=== PATIENT | female | born 1995 | race Caucasian/White ===

== ENCOUNTER → 2023-10-19 13:18 | Outpatient (REF) | payer BC, OTHER, SELFPAY | LOC: PNTC 13:18 | PROVIDERS: ATTENDING PHYSICIAN Obstetrics & Gynecology | DX: O99.210 Obesity complicating pregnancy, unspecified trimester (principal); O09.819 Supervision of pregnancy resulting from assisted reproductive technology, unspecified trimester | CPT/HCPCS: 76805 ==

== ENCOUNTER → 2023-11-16 06:54 | Outpatient (REF) | payer OTHER, BC, SELFPAY | LOC: PNTC 06:54 | PROVIDERS: ATTENDING PHYSICIAN Obstetrics & Gynecology | DX: O09.819 Supervision of pregnancy resulting from assisted reproductive technology, unspecified trimester (principal); O99.210 Obesity complicating pregnancy, unspecified trimester | CPT/HCPCS: 76811; J2997 ==

== ENCOUNTER 2023-12-16 09:24 | Emergency (ER) | payer OTHER, BC, SELFPAY ==
[2023-12-16 09:25] VITALS: BP 124/65
--- NOTE | 2023-12-16 09:39 | ED.GENMED ---
History of Present Illness
General
Chief Complaint: Abdominal Pain
Source: patient
Exam Limitations: none
Time Seen by Provider: 12/16/23 09:29
Nursing documentation reviewed up to this point in time: agreed with
Travel History
Have you had any contact with someone who has COVID-19?: No
Do you have any symptoms of coronavirus? Fever > 100 degrees, chills, cough, shortness of breath, sore throat, loss of taste or smell, muscle aches, or headache?: No
History of Present Illness
History of Present Illness:
28 yo h/o hypothyroid, PCOS, egg retrieval, , 24.5 weeks via in vitro fertilization, presents with RUQ abdominal sharp pains since 3 a.m. Feels nauseous, has not vomited, feels chills, no fever. Denies SOB, CP.
Past History
Past History
ED Past Medical History: Hypothyroidism
ED Past Surgical History: Other (egg retrieval, wisdom teeth)
Social History
Tobacco: Non-smoker
Alcohol: None
Personal:
Living: with family
Employment: Employed
Review of Systems
Review of Systems
Allergies reviewed?: Yes
All Other Systems: ROS reviewed and negative except as documented in HPI and ROS
Constitutional: Denies fever
Respiratory: Denies trouble breathing
Cardiac: Denies chest pain
ABD/GI: Reports abdominal pain and nausea; Denies vomiting or diarrhea
: Denies dysuria, frequency, flank pain, difficulty voiding or urgency
Musculoskeletal: Reports no symptoms
Skin: Reports no symptoms
Neurological: Reports no symptoms
Phy Exam
Physical Exam
Physical Exam:
GENERAL: No acute distress. A&Ox3.
CONSTITUTIONAL: Afebrile.
EYES: clear, conjunctivae normal
ENMT: moist mucus membranes, Pharynx nl
RESPIRATORY: Regular respirations, nonlabored, lungs clear.
CARDIOVASCULAR: Regular rate and rhythm, no murmurs, no rubs.
GI: Soft, tender RUQ, no guarding, normal BS
MUSCULOSKELETAL: Moves with ease. Well perfused.
SKIN: Warm, dry, pink
PSYCH: Normal mood and affect. Well kept, interactive and appropriate
NEUROLOGIC: Awake, alert and oriented. No focal neurological deficits
Course
Orders/Labs/Results
Orders:
Orders
12/16/23 09:38
US Abdomen Complete/Upper Urgent
Comment:
Reason For Exam: RUQ pain, 24.5 weeks
12/16/23 09:39
0.9% Sodium Chloride 1000 ml [Nss] 1,000 ml IV BOLUS
12/16/23 09:45
Heart Tones ONCE
12/16/23 10:42
Complete Blood Count/With Diff Urgent
Comprehensive Metabolic Panel Urgent
Lipase Urgent
Urinalysis Reflex To Culture Urgent
Date Specimen was Collected: 12/16/23
Time Specimen was Collected: 10:38
Urine Microscopic Reflex Cult Urgent
Urine Culture Urgent
BEVERLY Source: U
Specimen Description:
Date Specimen was Collected: 12/16/23
Time Specimen was Collected: 10:38
12/16/23 11:04
Ondansetron Injectable [Zofran] 4 mg .ROUTE .STK-MED ONE
12/16/23 11:06
Ondansetron Injectable [Zofran] 4 mg IV NOW STA
Abnormal Lab Results
12/16/23
10:42
WBC 11.8 H 10^3/uL
(4.8-10.8)
Hgb 11.3 L g/dL
(12.0-16.0)
Hct 34.5 L %
(37.0-47.0)
MCV 80.0 L fL
(81.0-99.0)
MCH 26.2 L pg
(27.0-31.0)
MCHC 32.8 L g/dL
(33.0-37.0)
MPV 10.8 H fL
(7.4-10.4)
Abs Immat Gran (auto) 0.1 H 10^3/uL
(0-0.05)
Absolute Neuts (auto) 9.3 H 10^3/uL
(1.4-6.5)
Immature Gran % 0.7 H %
(0-0.5)
Neutrophils % 78.9 H %
(42.2-75.2)
Lymphocytes % 14.8 L %
(20.5-51.1)
Chloride 108 H mmol/L
(98-107)
Carbon Dioxide 21 L mmol/L
(22-30)
BUN 5 L mg/dl
(7-17)
Creatinine 0.5 L mg/dL
(0.6-1.0)
Leukocyte Esterase Rfl 1+ A
(Negative)
Urine Bacteria (Reflex) Moderate A
(Negative)
12/16/23 10:42
12/16/23 10:42
Vital Signs
Initial and Last Documented VS:
Initial Vital Signs
Temp Pulse Resp BP Pulse Ox
98.1 F 88 20 124/65 100
12/16/23 09:25 12/16/23 09:25 12/16/23 09:25 12/16/23 09:25 12/16/23 09:25
Last Documented Vital Signs
Temp Pulse Resp BP Pulse Ox
98.1 F 78 16 119/63 100
12/16/23 09:25 12/16/23 12:46 12/16/23 12:46 12/16/23 12:46 12/16/23 12:46
MDM/Problems Addressed
Differential Diagnosis Includes:
cholecystitis, biliary colic, kidney stone, GERD, gestational HTN, HELLP
MDM/Problems Addressed:
28 yo h/o hypothyroid, PCOS, egg retrieval, , 24.5 weeks via in vitro fertilization, presents with RUQ abdominal sharp pains since 3 a.m. Feels nauseous, has not vomited, feels chills, no fever. Denies SOB, CP.
No risk factors for Eclampsia/preeclampsia
11:14 AM
FHT 144
CBC: WBC 11.8
CMP unremarkable
Patient is nauseous, Zofran ordered
Abdominal ultrasound is normal, specifically the gallbladder is normal, kidneys are normal and no hydronephrosis.
UA negative
Pt now states she lifted a table 3 days ago and may have strained her abdominal muscles.
No longer nauseous.
Reassured no indication of pre eclampsia or any other concerning issue
She is comfortable going home.
Pain is minimal, no longer nauseous
Ambulated out with normal gait.
.�
*Critical Care Note
Total Time (30-74mins, 75-104mins- exclusive of procedures): Not Applicable
ED Attending Note
-
Portions of this chart may have been created with voice recognition software.� Occasional wrong word or��sound alike� substitutions may have occurred due to the inherent limitations of voice recognition software.
Discharge Plan
Departure
Patient Disposition: Home (Routine Discharge)
Date of Disposition: 12/16/23
Time of Disposition: 12:28
Patient with high blood pressure during this ER visit?: No
Condition: Good
Discharge Problem:
Abdominal pain,
Instructions: Stomach Pain Later in , Abdominal Pain
Referrals:
Your, OB doctor [Other] - Keep scheduled appt
Pantera Velazco, DO [Family Provider] -
Activity Restrictions/Additional Instructions:
As we discussed, nothing worrisome in your evaluation here today.
Tylenol 650 mg every 6 hours as needed for painDiclegis
Avoid lifting more than 5 lbs.
Return here immediately for worsening pain, pain associated with vomiting, fever, vaginal discharge or bleeding or feeling sicker in any way.
You may take [id number] Diclegis as directed on the package as needed for nausea.
Interventions
Interventions:
*Risk Screen - Suicide Last Done: 12/16/23 12:55
*General Assessment Last Done: 12/16/23 11:00
*Neglect/Abuse Screening Last Done: 12/16/23 12:55
ED- Fall Risk Assessment Last Done: 12/16/23 12:55
*ED COVID-19 Vaccine History Last Done: 12/16/23 11:00
*Nursing Disposition Last Done: 12/16/23 12:55
RZ-Uwjdej-Fdkzvuebzb Assessment Last Done: 12/16/23 11:00
Discharge Date and Time
Discharge Date/Time: 12/16/23 12:55
Print Language: SWAZI
[2023-12-16] MEDS: NSS 1000 IV (10:50)
[2023-12-16 10:54] LABS: Urine Albumin Negative (Neg - Trace); Urine Bilirubin Negative (Negative); Urine Character Clear (Clear); Urine Color Yellow; Urine Glucose Negative (Negative); Urine Ketone Negative (Negative); Urine Leukocyte 1+ (Negative); Urine Nitrite Negative (Negative); Urine Occult Blood Negative (Negative); Urine Specific Gravity 1.015 (<1.030); Urine Urobilinogen Negative (Neg - 1+)
[2023-12-16] MEDS: ZOFRAN 4 MG IV (11:06)
[2023-12-16 11:09] LABS: % Basophils 0.4 % (0-2); % Eosinophils 0.7 % (0-6); % Immature Granulocytes 0.7 % (0-0.5); % Lymphocytes 14.8 % (20.5-51.1); % Monocytes 4.5 % (1.7-9.3); % Neutrophils 78.9 % (42.2-75.2); Absolute Basophils 0.1 10^3/uL (0-0.2); Absolute Eosinophils 0.1 10^3/uL (0-0.7); Absolute Immature Granulocytes 0.1 10^3/uL (0-0.05); Absolute Lymphocytes 1.8 10^3/uL (1.2-3.4); Absolute Monocytes 0.5 10^3/uL (0.1-0.6); Absolute Neutrophils 9.3 10^3/uL (1.4-6.5); Hematocrit 34.5 % (37.0-47.0); Hemoglobin 11.3 g/dL (12.0-16.0); Mean Corp Hgb Conc. 32.8 g/dL (33.0-37.0); Mean Corpuscular Hgb 26.2 pg (27.0-31.0); Mean Platelet Volume 10.8 fL (7.4-10.4); Nucleated Red Blood Cells % 0 %; Platelet Count 258 10^3/uL (130-400); Red Blood Cell Count 4.31 10^6/uL (4.20-5.40); Red Cell Dist. Width 14.5 % (11.5-14.5); White Blood Cell Count 11.8 10^3/uL (4.8-10.8)
[2023-12-16 11:10] LABS: Urine Bacteria Moderate (Negative); Urine Squamous Cell >30 /LPF (Few)
[2023-12-16 11:15] LABS: Urine Red Blood Cell 0-2 /HPF (0-2)
[2023-12-16 11:25] LABS: ALT (SGPT) 14 U/L (0-35); AST (SGOT) 19 U/L (14-36); Albumin 3.6 g/dl (3.5-5.0); Alkaline Phosphatase 78 U/L (38-126); Blood Urea Nitrogen 5 mg/dl (7-17); Calcium 9.5 mg/dl (8.4-10.2); Carbon Dioxide 21 mmol/L (22-30); Chloride 108 mmol/L (98-107); Glucose 96 mg/dl (70-99); Lipase 64 U/L (23-300); Sodium 135 mmol/L (135-145); Total Bilirubin 0.3 mg/dl (0.2-1.3); Total Protein 6.8 g/dl (6.3-8.2); eGFR > 60.00
[2023-12-16 11:35] VITALS: BP 125/70
[2023-12-16 12:46] VITALS: BP 119/63
== END 2023-12-16 12:55 | disposition home or self-care (01) ==
LOC: EMR 09:24
PROVIDERS: Registered Nurse; EMERGENCY PHYSICIAN Student in an Organized Health Care Education/Training Program; FAMILY PHYSICIAN Family Medicine
DX: O99.891 Other specified diseases and conditions complicating pregnancy (principal); R10.9 Unspecified abdominal pain; O99.282 Endocrine, nutritional and metabolic diseases complicating pregnancy, second trimester; E03.9 Hypothyroidism, unspecified; Z3A.24 24 weeks gestation of pregnancy
CPT/HCPCS: 99284; 96374; 96361; 76700; 80053; 81003; 81015; 83690; 85025; 87086

== ENCOUNTER → 2023-12-17 12:03 | Outpatient (REF) | payer OTHER, BC, SELFPAY | LOC: PNTC 12:03 | PROVIDERS: ATTENDING PHYSICIAN Obstetrics & Gynecology | DX: O26.899 Other specified pregnancy related conditions, unspecified trimester (principal); O09.819 Supervision of pregnancy resulting from assisted reproductive technology, unspecified trimester; O99.210 Obesity complicating pregnancy, unspecified trimester; E03.9 Hypothyroidism, unspecified | CPT/HCPCS: 76816 ==

== ENCOUNTER → 2023-12-28 06:47 | Outpatient (REF) | payer OTHER, BC, SELFPAY | LOC: PNTC 06:47 | PROVIDERS: ATTENDING PHYSICIAN Obstetrics & Gynecology | DX: O09.819 Supervision of pregnancy resulting from assisted reproductive technology, unspecified trimester (principal); O99.210 Obesity complicating pregnancy, unspecified trimester; O99.280 Endocrine, nutritional and metabolic diseases complicating pregnancy, unspecified trimester | CPT/HCPCS: 76816 ==

== ENCOUNTER → 2024-02-09 07:03 | Outpatient (REF) | payer BC, OTHER, SELFPAY | LOC: PNTC 07:03 | PROVIDERS: ATTENDING PHYSICIAN Obstetrics & Gynecology | DX: O09.819 Supervision of pregnancy resulting from assisted reproductive technology, unspecified trimester (principal); O99.210 Obesity complicating pregnancy, unspecified trimester; O99.280 Endocrine, nutritional and metabolic diseases complicating pregnancy, unspecified trimester | CPT/HCPCS: 76816 ==

== ENCOUNTER → 2024-02-23 07:10 | Outpatient (REF) | payer BC, OTHER, SELFPAY | LOC: PNTC 07:10 | PROVIDERS: ATTENDING PHYSICIAN Obstetrics & Gynecology | DX: O09.819 Supervision of pregnancy resulting from assisted reproductive technology, unspecified trimester (principal); O99.210 Obesity complicating pregnancy, unspecified trimester; O99.280 Endocrine, nutritional and metabolic diseases complicating pregnancy, unspecified trimester | CPT/HCPCS: 59025; 76815 ==

== ENCOUNTER → 2024-03-01 07:12 | Outpatient (REF) | payer BC, OTHER, SELFPAY | LOC: PNTC 07:12 | PROVIDERS: ATTENDING PHYSICIAN Obstetrics & Gynecology; REFERRING PHYSICIAN Obstetrics & Gynecology | DX: O99.210 Obesity complicating pregnancy, unspecified trimester (principal); O09.819 Supervision of pregnancy resulting from assisted reproductive technology, unspecified trimester; E03.9 Hypothyroidism, unspecified | CPT/HCPCS: 59025; 76815 ==

== ENCOUNTER → 2024-03-08 07:09 | Outpatient (REF) | payer BC, OTHER, SELFPAY | LOC: PNTC 07:09 | PROVIDERS: ATTENDING PHYSICIAN Obstetrics & Gynecology | DX: O09.819 Supervision of pregnancy resulting from assisted reproductive technology, unspecified trimester (principal); O99.210 Obesity complicating pregnancy, unspecified trimester; O99.280 Endocrine, nutritional and metabolic diseases complicating pregnancy, unspecified trimester | CPT/HCPCS: 59025; 76816 ==

== ENCOUNTER → 2024-03-15 07:03 | Outpatient (REF) | payer BC, OTHER, SELFPAY | LOC: PNTC 07:03 | PROVIDERS: ATTENDING PHYSICIAN Obstetrics & Gynecology | DX: O99.210 Obesity complicating pregnancy, unspecified trimester (principal); O09.819 Supervision of pregnancy resulting from assisted reproductive technology, unspecified trimester; O99.280 Endocrine, nutritional and metabolic diseases complicating pregnancy, unspecified trimester | CPT/HCPCS: 36415; 59025; 76805; 76818 ==

== ENCOUNTER 2024-03-20 11:31 | Inpatient (IN) | payer BC, OTHER, SELFPAY ==
[2024-03-20 11:42] VITALS: BP 146/83; BMI 38.8
[2024-03-20 12:22] LABS: Hematocrit 33.4 % (37.0-47.0); Hemoglobin 11.4 g/dL (12.0-16.0); Mean Corp Hgb Conc. 34.1 g/dL (33.0-37.0); Mean Corpuscular Hgb 27.4 pg (27.0-31.0); Mean Corpuscular Volume 80.3 fL (81.0-99.0); Mean Platelet Volume 11.3 fL (7.4-10.4); Platelet Count 196 10^3/uL (130-400); Red Blood Cell Count 4.16 10^6/uL (4.20-5.40); Red Cell Dist. Width 16.4 % (11.5-14.5); White Blood Cell Count 11.4 10^3/uL (4.8-10.8)
[2024-03-20 12:32] LABS: ALT (SGPT) 14 U/L (0-35); AST (SGOT) 21 U/L (14-36); Albumin 3.1 g/dl (3.5-5.0); Alkaline Phosphatase 117 U/L (38-126); Blood Urea Nitrogen 8 mg/dl (7-17); Calcium 9.2 mg/dl (8.4-10.2); Carbon Dioxide 23 mmol/L (22-30); Chloride 108 mmol/L (98-107); Estimated Creatinine Clearance > 125 ml/min; Glucose 98 mg/dl (70-99); Potassium 4.2 mmol/L (3.5-5.1); Sodium 135 mmol/L (135-145); Total Bilirubin 0.3 mg/dl (0.2-1.3); Total Protein 5.9 g/dl (6.3-8.2); eGFR > 60.00
[2024-03-20 12:36] LABS: Protein/creatinine Ratio 0.1; Urine Protein 10 mg/dl
[2024-03-20] MEDS: PENICILLIN 110 UNITS IV (14:37)
[2024-03-20] MEDS: LR 1000 IV (14:37)
[2024-03-20] MEDS: CYTOTEC 25 MICROGRAM VAG (14:43)
[2024-03-20] MEDS: PENICILLIN 55 UNITS IV ×2 (18:02→21:47)
[2024-03-20] MEDS: CYTOTEC 50 MICROGRAM PO ×2 (19:00→23:19)
[2024-03-21] MEDS: PENICILLIN 55 UNITS IV ×6 (02:09→21:58)
[2024-03-21] MEDS: ZOFRAN 4 MG IV (02:09)
[2024-03-21] MEDS: MORPHINE SULFATE 2 MG IV (02:25)
[2024-03-21] MEDS: PITOCIN 30 UNITS/NSS 500 ML IV (03:22)
[2024-03-21] MEDS: SYNTHROID 137 MCG PO (06:11)
[2024-03-21] MEDS: LR 1000 IV (06:19)
[2024-03-21] MEDS: PRENATAL PLUS PO (08:39)
[2024-03-21] MEDS: FEOSOL PO (08:39)
[2024-03-21] MEDS: SUBLIMAZE 100 MCG EPIDURAL (09:03)
[2024-03-21] MEDS: FENTANYL/BUPIVACAINE 100 EPIDURAL ×2 (09:04→16:38)
[2024-03-21] MEDS: METHERGINE INJECTION 0.2 MG IM (23:46)
[2024-03-22] MEDS: CYTOTEC PO (00:06)
[2024-03-22] MEDS: TYLENOL 650 MG PO ×3 (01:41→20:44)
[2024-03-22] MEDS: MOTRIN 600 MG PO ×3 (01:42→20:44)
[2024-03-22] MEDS: SYNTHROID 137 MCG PO (05:53)
[2024-03-22 08:13] LABS: Hematocrit 32.8 % (37.0-47.0)
[2024-03-22] MEDS: HYDROCORTISONE 2.5% OINTMENT 1 APPLIC TOPICAL ×2 (11:37→20:00)
[2024-03-22 12:35] LABS: Syphilis/T. pallidum Ab Reflex Negative (Negative)
[2024-03-22] MEDS: PRENATAL PLUS 1 TABLET PO (13:45)
[2024-03-22] MEDS: FEOSOL 325 MG PO (13:46)
[2024-03-23] MEDS: MOTRIN 600 MG PO (04:44)
[2024-03-23] MEDS: TYLENOL 650 MG PO (04:44)
[2024-03-23] MEDS: SYNTHROID 137 MCG PO (05:57)
[2024-03-23] MEDS: PRENATAL PLUS 1 TABLET PO (07:15)
[2024-03-23] MEDS: SENOKOT-S 1 TABLET PO (07:15)
[2024-03-23] MEDS: FEOSOL 325 MG PO (07:15)
[2024-03-23] MEDS: HYDROCORTISONE 2.5% OINTMENT 1 APPLIC TOPICAL (07:49)
== END 2024-03-23 12:00 | disposition home or self-care (01) | DRG 807 ==
LOC: LDRP 11:31
PROVIDERS: Obstetrics & Gynecology; ADMITTING PHYSICIAN Obstetrics & Gynecology; REFERRING PHYSICIAN Obstetrics & Gynecology
PROC: 3E0P7VZ Introduction of Hormone into Female Reproductive, Via Natural or Artificial Opening (ICD-10-PCS; 2024-03-20)
PROC: 3E033VJ Introduction of Other Hormone into Peripheral Vein, Percutaneous Approach (ICD-10-PCS; 2024-03-20)
PROC: 0HQ9XZZ Repair Perineum Skin, External Approach (ICD-10-PCS; 2024-03-22)
PROC: 10E0XZZ Delivery of Products of Conception, External Approach (ICD-10-PCS; 2024-03-22)
DX: O42.02 Full-term premature rupture of membranes, onset of labor within 24 hours of rupture (principal); Z37.0 Single live birth; Z3A.38 38 weeks gestation of pregnancy; O70.0 First degree perineal laceration during delivery; O99.284 Endocrine, nutritional and metabolic diseases complicating childbirth; E28.2 Polycystic ovarian syndrome; E03.9 Hypothyroidism, unspecified; O13.4 Gestational [pregnancy-induced] hypertension without significant proteinuria, complicating childbirth; O99.824 Streptococcus B carrier state complicating childbirth; O99.214 Obesity complicating childbirth; E66.01 Morbid (severe) obesity due to excess calories; O99.02 Anemia complicating childbirth; D50.9 Iron deficiency anemia, unspecified; R21 Rash and other nonspecific skin eruption
CPT/HCPCS: 88307; 80053; 82570; 84156; 85014; 85018; 85027; 86780; 86850; 86900; 86901